=== PATIENT | male | born 1960 | race Caucasian/White ===

== ENCOUNTER 2017-02-21 07:04 | Day surgery (SDC) | payer OTHER ==
[~2017-02-21] VITALS: Ht 182.9 cm; Wt 81.6 kg
[~2017-02-21 07:04] MED LIST: LIPITOR80 MG PO; LITE COAT ASPI325 M1 PO; MICROZIDE12.5 M1 PO; ZESTRIL40 MG PO
[2017-02-21 08:10] VITALS: BP 120/68
[2017-02-21] MEDS ORDERED: PERCOCET 5/31 TABLET PO (10:05)
[2017-02-21 11:33] VITALS: BP 118/79
[2017-02-21 12:13] VITALS: BP 119/61
== END 2017-02-21 12:45 | disposition home or self-care (01) ==
LOC: SDC 07:04
PROC: 0YU50JZ Supplement Right Inguinal Region with Synthetic Substitute, Open Approach (ICD-10-PCS; principal; 2017-02-21)
DX: K40.90 Unilateral inguinal hernia, without obstruction or gangrene, not specified as recurrent (principal); I25.10 Atherosclerotic heart disease of native coronary artery without angina pectoris; I10 Essential (primary) hypertension; E78.00 Pure hypercholesterolemia, unspecified; R73.03 Prediabetes; Z79.82 Long term (current) use of aspirin; F17.210 Nicotine dependence, cigarettes, uncomplicated; Z80.3 Family history of malignant neoplasm of breast; Z83.3 Family history of diabetes mellitus; Z82.49 Family history of ischemic heart disease and other diseases of the circulatory system
CPT/HCPCS: C1781; J0131; J0690; J1100; J1170; J1885; J2250; J2405; J3010